=== PATIENT | female | born 1965 | race African-American/Black ===

== ENCOUNTER 2017-10-10 09:43 | Inpatient (IN) | payer OTHER ==
[2017-10-02 13:09] VITALS: BMI 47.5
--- NOTE | 2017-10-10 07:56 | HP ---
Admitting History and Physical - Admission Chief Complaint: left knee osteroarthritis x years History of Present Illness: 52 year old female presents in regard to her left knee. Longstanding history of left knee osteoarthritis. She complains of pain, limited ROM, difficulty ambulating, difficulty with bending, squatting and stairs as well as ADLs. She has failed conservative treatment measures including PO medication, injections, activity modifications and exercise program. At this point, patient would like to proceed with a left total knee arthroplasty. History Source: Patient - Past Medical History Pulmonary: Yes: Asthma ...LMP: 09/11/17 Psych: Yes: Depression Endocrine: Yes: Diabetes Mellitus - Past Surgical History Additional Past Surgical History: See written H&P. - Advance Directives Advance Directives: Yes: Health Care Proxy - Smoking History Smoking history: Current every day smoker Have you smoked in the past 12 months: Yes Aproximately how many cigarettes per day: 10 - Alcohol/Substance Use Hx Alcohol Use: Yes (RARE) Home Medications - Allergies Allergies/Adverse Reactions: Allergies Allergy/AdvReac Type Severity Reaction Status Date / Time Sulfa (Sulfonamide Allergy Mild Hives Verified 10/02/17 13:12 Antibiotics) - Home Medications Home Medications: Ambulatory Orders Cholecalciferol (Vitamin D3) [Vitamin D3] 5,000 unit PO WEEKLY 08/29/16 Metformin HCl 500 mg PO BID 08/29/16 Oxycodone HCl 30 mg PO QID 08/29/16 Albuterol Sulfate Inhaler - [Ventolin Hfa Inhaler -] 1 - 2 inh PO QID PRN Aspirin [Aspirin EC] 81 mg PO DAILY 10/02/17 Atorvastatin Ca [Lipitor] 20 mg PO HS 10/02/17 Proair Respiclick 1 each IH PRN PRN 10/02/17 Quetiapine Fumarate [Seroquel] 100 mg PO HS 10/02/17 Review of Systems - Review of Systems Musculoskeletal: reports: Crepitus (left knee), Decreased ROM (left knee), Joint Pain (left knee), Joint Swelling (left knee) Physical Examination Constitutional: Yes: Well Nourished Eyes: Yes: Conjunctiva Clear HENT: Yes: Atraumatic, Normocephalic Neck: Yes: Supple Cardiovascular: Yes: Regular Rate and Rhythm Respiratory: Yes: Regular Gastrointestinal: Yes: Soft ...Rectal Exam: Yes: Deferred Musculoskeletal: Yes: Joint Stiffness (left knee), Joint Swelling (left knee) Assessment/Plan 52 year old female presents in regard to her left knee. Longstanding history of left knee osteoarthritis. Patient complains of pain, limited ROM, difficulty ambulating, difficulty with bending, squatting and stairs as well as ADLs. Patient has failed conservative treatment measures including PO medication, injections, activity modifications and exercise program. Pros, cons, risks, benefits and alternatives of a left total knee arthroplasty was discussed with he patient. Patient confirma their understanding, patient wishes to proceed with a left total knee arthroplasty.
[~2017-10-10 09:43] MED LIST: CEFAZOLIN 2 GM in DEXTROSE 5%-WATER - 50 ML IVPB ONE; CELECOXIB 200 MG CAPSULE PO ONE; GABAPENTIN 300 MG CAPSULE (FP) PO ONE; PANTOPRAZOLE 40 MG TABLET (FP) PO ONE; ROPIVICAINE 0.2%/MORPH PF/KETOROLAC - 51ML DISP.SYRINGE IA ONE; TRANEXAMIC ACID 1000 MG/10 ML VIAL IVPUSH ONE; oxyCODONE HCL 10 MG SUSTAINED ACTING TABLET PO ONE
[2017-10-10] MEDS ORDERED: oxyCODONE HCL 10 MG SUSTAINED ACTING TABLET ONE (10:30)
[2017-10-10] MEDS ORDERED: GABAPENTIN 300 MG CAPSULE (FP) ONE (10:30)
[2017-10-10] MEDS ORDERED: PANTOPRAZOLE 40 MG TABLET (FP) ONE (10:30)
[2017-10-10] MEDS ORDERED: CELECOXIB 200 MG CAPSULE ONE (10:31)
[2017-10-10] MEDS ORDERED: BUPIVACAINE LIPOSOME/PF (EXPAREL) 266 MG/20 ML VIAL ONE (11:57)
[2017-10-10] MEDS ORDERED: BUPIVACAINE HCL/PF (5 MG/ML) 30 ML VIAL IJ ONE (11:57)
[2017-10-10] MEDS ORDERED: DEXAMETHASONE SOD PHOSPHATE/PF 10 MG/ML SDV ONE (11:57)
[2017-10-10] MEDS ORDERED: MIDAZOLAM HCL 2 MG/2 ML SINGLE DOSE VIAL ONE ×2 (11:57→13:30)
[2017-10-10] MEDS ORDERED: SODIUM CHLORIDE 0.9% P/F 10 ML VIAL IJ ONE ×4 (11:57→13:35)
[2017-10-10] MEDS ORDERED: ROPIVICAINE 0.2%/MORPH PF/KETOROLAC - 51ML DISP.SYRINGE IA ONE (12:27)
[2017-10-10] MEDS ORDERED: VANCOMYCIN 1,000 MG VIAL (RESTRICTED TO ID ONLY) ONE ×2 (12:27→13:26)
[2017-10-10] MEDS ORDERED: TRANEXAMIC ACID 1000 MG/10 ML VIAL ONE ×2 (12:59→13:29)
[2017-10-10] MEDS ORDERED: ceFAZolin SODIUM 1 GM VIAL ONE ×2 (12:59→13:00)
[2017-10-10] MEDS ORDERED: PROPOFOL 20 ML ONE ×2 (13:00→14:59)
[2017-10-10] MEDS ORDERED: DEXAMETHASONE SOD PHOSPHATE 4 MG/1 ML VIAL ONE (13:33)
[2017-10-10] MEDS ORDERED: ONDANSETRON 4 MG/2 ML VIAL ONE (13:33)
[2017-10-10] MEDS ORDERED: PHENYLEPHRINE HCL 10 MG/1 ML SINGLE DOSE VIAL ONE (13:35)
[2017-10-10] MEDS ORDERED: traMADol HCL 50 MG TABLET ONE (16:19)
[2017-10-10] MEDS ORDERED: ACETAMINOPHEN INJECTION 100 ML IVPB ONE (16:19)
[2017-10-10] MEDS ORDERED: KETOROLAC TROMETHAMINE 30 MG/1 ML VIAL ONE (16:19)
[2017-10-10] MEDS ORDERED: ALBUTEROL SO4 18 GM HFA INHALER IH PRN ×3 (16:20→16:53)
[2017-10-10] MEDS ORDERED: MAG HYDROX/AL HYDROX/SIMETH 30 ML UNIT-DOSE CUP PO PRN (16:25)
[2017-10-10] MEDS ORDERED: MAGNESIUM HYDROX 2400MG/30ML ORAL SUSPENSION 30 ML CUP PO PRN (16:25)
[2017-10-10] MEDS ORDERED: ONDANSETRON 4 MG/2 ML VIAL IVPUSH PRN ×2 (16:25→16:39)
--- NOTE | 2017-10-10 16:25 | OP ---
Operative Note - Note: Operative Date: 10/10/17 Pre-Operative Diagnosis: Left knee OA Operation: Left TKA Findings: see dictation Post-Operative Diagnosis: Same as Pre-op Surgeon: Harrison Faulkner Biometrics Analyst: Waleska Geronimo Anesthesiologist/BUSINESS PROCESS MODELER: Joaquin Ashford Anesthesia: Spinal Estimated Blood Loss (mls): 150
[2017-10-10] MEDS ORDERED: LACTATED RINGERS SOLUTION 1,000 ML IV SCH (16:30)
[2017-10-10] MEDS ORDERED: PROMETHAZINE HCL 25 MG/1 ML VIAL IVPB PRN (16:39)
[2017-10-10] MEDS: ACETAMINOPHEN 1000 MG/100 ML VIAL (NON FORMULARY) IVPB ONE ×2 (16:45→17:58)
[2017-10-10] MEDS ORDERED: oxyCODONE HCL 5 MG TABLET PO PRN (16:47)
[2017-10-10] MEDS ORDERED: VANCOMYCIN 1,750 MG in DEXTROSE 5%-WATER - 250 ML IVPB ONE (17:00)
[2017-10-10] MEDS ORDERED: VANCOMYCIN 1,750 MG in DEXTROSE 5%-WATER - 500 ML IVPB ONE (17:00)
[2017-10-10] MEDS: KETOROLAC TROMETHAMINE 30 MG/1 ML VIAL IVPUSH SCH ×2 (17:57→23:00)
[2017-10-10] MEDS: traMADol HCL 50 MG TABLET PO SCH ×2 (17:57→22:34)
[2017-10-10] MEDS: ACETAMINOPHEN 325 MG TABLET (FP) PO SCH ×2 (17:58→22:36)
[2017-10-10] MEDS: CEFAZOLIN 2 GM/D5W 2 GM/50 ML ML IVPB SCH (18:14)
[2017-10-10] MEDS: oxyCODONE HCL 5 MG TABLET PO PRN (19:00)
[2017-10-10] MEDS: APIXABAN 2.5 MG TABLET PO SCH (22:31)
[2017-10-10] MEDS: GABAPENTIN 300 MG CAPSULE (FP) PO SCH (22:32)
[2017-10-10] MEDS: CELECOXIB 200 MG CAPSULE PO SCH (22:32)
[2017-10-10] MEDS: oxyCODONE HCL 10 MG SUSTAINED ACTING TABLET PO SCH (22:32)
[2017-10-10] MEDS: QUEtiapine FUMARATE 100 MG TABLET (FP) PO SCH (22:33)
[2017-10-10] MEDS: SENNOSIDES/DOCUSATE COMBO (SENNA PLUS) TABLET (UD) PO SCH (22:37)
[2017-10-10] MEDS: ASCORBIC ACID 500 MG TABLET (FP) PO SCH (22:37)
[2017-10-10] MEDS: ATORVASTATIN CA 20 MG TABLET (FP) PO SCH (22:37)
[2017-10-11] MEDS ORDERED: DEXAMETHASONE SOD PHOSPHATE 10 MG/1 ML VIAL IVPB ONE (01:00)
[2017-10-11] MEDS ORDERED: VANCOMYCIN 1 GRAM (PRE-DOCKED) 1,000 MG/250 ML BAG IVPB ONE (01:00)
[2017-10-11] MEDS: CEFAZOLIN 2 GM/D5W 2 GM/50 ML ML IVPB SCH ×2 (01:20→10:39)
[2017-10-11] MEDS: oxyCODONE HCL 5 MG TABLET PO PRN ×3 (02:25→23:58)
[2017-10-11] MEDS: metFORMIN HCL 500 MG TABLET (FP) PO SCH ×2 (06:28→17:24)
[2017-10-11] MEDS: ACETAMINOPHEN 325 MG TABLET (FP) PO SCH ×5 (06:30→23:50)
[2017-10-11] MEDS: KETOROLAC TROMETHAMINE 30 MG/1 ML VIAL IVPUSH SCH ×2 (06:31→10:42)
[2017-10-11 08:43] LABS: HEMATOCRIT 27.9 % (32.4-45.2); HEMOGLOBIN 8.2 GM/dl (10.7-15.3); MCH 22.3 pg (25.7-33.7); MCHC 29.6 g/dl (32.0-36.0); MEAN CELL VOLUME 75.3 fl (80-96); MEAN PLT VOLUME 8.5 fl (7.5-11.1); PLATELET COUNT 198 K/MM3 (134-434); RDW 15.6 % (11.6-15.6); WHITE BLOOD COUNT 13.5 K/mm3 (4.0-10.8)
[2017-10-11 08:50] LABS: ANION GAP 7 (8-16); BLOOD UREA NITROGEN 18 mg/dl (7-18); CALCIUM 8.5 mg/dl (8.4-10.2); CHLORIDE 102 mmol/L (98-107); CO2 25 mmol/L (22-28); CREATININE 0.7 mg/dl (0.6-1.3); GLUCOSE,RANDOM 221 mg/dl (74-106); POTASSIUM 3.9 mmol/L (3.5-5.1); SODIUM 134 mmol/L (136-145)
[2017-10-11] MEDS ORDERED: ONDANSETRON 4 MG/2 ML VIAL IVPUSH PRN (08:52)
[2017-10-11 09:59] LABS: ADD RBC MORPHOLOGY YES
--- NOTE | 2017-10-11 10:10 | PN ---
Progress Note (short form) - Note Progress Note: S: Pt. in a chair, comfortable with no complaints. O: VAS 6/10 A/p: POD #1 s/p left total knee 1. Pain tolerable at 6/10. encouraged pain meds as needed 2. no apparent anesthesia complications
[2017-10-11] MEDS: MULTIVITAMINS (DAILY MVI) TABLET (FP) PO SCH (10:40)
[2017-10-11] MEDS: CELECOXIB 200 MG CAPSULE PO SCH ×2 (10:40→21:09)
[2017-10-11] MEDS: PANTOPRAZOLE 40 MG TABLET (FP) PO SCH (10:40)
[2017-10-11] MEDS: ASCORBIC ACID 500 MG TABLET (FP) PO SCH ×2 (10:40→21:10)
[2017-10-11] MEDS: SENNOSIDES/DOCUSATE COMBO (SENNA PLUS) TABLET (UD) PO SCH ×2 (10:40→21:09)
[2017-10-11] MEDS: APIXABAN 2.5 MG TABLET PO SCH ×2 (10:40→21:08)
[2017-10-11] MEDS: GABAPENTIN 300 MG CAPSULE (FP) PO SCH ×2 (10:41→21:08)
[2017-10-11] MEDS: oxyCODONE HCL 10 MG SUSTAINED ACTING TABLET PO SCH ×2 (10:41→21:08)
[2017-10-11] MEDS: traMADol HCL 50 MG TABLET PO SCH ×3 (10:42→23:08)
[2017-10-11] MEDS: oxyCODONE HCL 5 MG TABLET PO SCH ×3 (10:51→17:25)
[2017-10-11 12:29] LABS: ANISOCYTOSIS 1+
[2017-10-11] MEDS: LACTATED RINGERS SOLUTION 1,000 ML IV SCH ×2 (14:07→17:24)
[2017-10-11] MEDS ORDERED: oxyCODONE HCL 5 MG TABLET PO PRN (18:43)
--- NOTE | 2017-10-11 18:47 | PN ---
Progress Note (short form) - Note Progress Note: Pt seen and examined. Doing well. AVSS Selected Entries 10/11/17 14:35 Temperature 98.2 F Pulse Rate 86 Respiratory 18 Rate Blood Pressure 105/75 Laboratory Tests 10/11/17 10/11/17 10/11/17 06:38 08:00 08:00 WBC 13.5 H Hgb 8.2 L Hct 27.9 L Plt Count 198 Sodium 134 L Potassium 3.9 Chloride 102 Carbon Dioxide 25 Anion Gap 7 L BUN 18 Creatinine 0.7 POC Glucometer 217 Random Glucose 221 H Calcium 8.5 Gen: NAD LLE: c/d/i, NVID A/P 52yo female POD#1 s/p L TKA 1. PT/OOB 2. D/C in AM after PT; f/u in office in 10-14 days
[2017-10-11] MEDS: ATORVASTATIN CA 20 MG TABLET (FP) PO SCH (21:08)
[2017-10-11] MEDS: QUEtiapine FUMARATE 100 MG TABLET (FP) PO SCH (21:09)
[2017-10-12] MEDS: traMADol HCL 50 MG TABLET PO SCH ×3 (05:48→10:10)
[2017-10-12] MEDS: metFORMIN HCL 500 MG TABLET (FP) PO SCH (06:11)
[2017-10-12] MEDS: oxyCODONE HCL 5 MG TABLET PO PRN (06:12)
[2017-10-12] MEDS: ACETAMINOPHEN 325 MG TABLET (FP) PO SCH (06:12)
[2017-10-12 07:09] VITALS: BP 109/62; PULSE 87; TEMP 98.5
[2017-10-12 07:44] LABS: HEMATOCRIT 23.2 % (32.4-45.2); HEMOGLOBIN 7.1 GM/dl (10.7-15.3); MCH 22.9 pg (25.7-33.7); MCHC 30.6 g/dl (32.0-36.0); MEAN CELL VOLUME 74.8 fl (80-96); MEAN PLT VOLUME 7.2 fl (7.5-11.1); PLATELET COUNT 171 K/MM3 (134-434); RDW 15.5 % (11.6-15.6); WHITE BLOOD COUNT 11.3 K/mm3 (4.0-10.8)
[2017-10-12 07:50] LABS: ADD RBC MORPHOLOGY YES
[2017-10-12 08:29] LABS: ANION GAP 4 (8-16); BLOOD UREA NITROGEN 22 mg/dl (7-18); CALCIUM 8.9 mg/dl (8.4-10.2); CHLORIDE 106 mmol/L (98-107); CO2 25 mmol/L (22-28); CREATININE 0.7 mg/dl (0.6-1.3); GLUCOSE,RANDOM 161 mg/dl (74-106); POTASSIUM 3.8 mmol/L (3.5-5.1); SODIUM 135 mmol/L (136-145)
[2017-10-12] MEDS: SENNOSIDES/DOCUSATE COMBO (SENNA PLUS) TABLET (UD) PO SCH (09:46)
[2017-10-12] MEDS: oxyCODONE HCL 10 MG SUSTAINED ACTING TABLET PO SCH (09:47)
[2017-10-12] MEDS: PANTOPRAZOLE 40 MG TABLET (FP) PO SCH (09:47)
[2017-10-12] MEDS: APIXABAN 2.5 MG TABLET PO SCH (09:47)
[2017-10-12] MEDS: CELECOXIB 200 MG CAPSULE PO SCH (09:47)
[2017-10-12] MEDS: MULTIVITAMINS (DAILY MVI) TABLET (FP) PO SCH (09:47)
[2017-10-12] MEDS: GABAPENTIN 300 MG CAPSULE (FP) PO SCH (09:47)
[2017-10-12] MEDS: ASCORBIC ACID 500 MG TABLET (FP) PO SCH (09:47)
[2017-10-12 10:34] LABS: TARGET CELLS FEW
--- NOTE | 2017-10-15 13:23 | PATH ---
Surgical Pathology Report Patient Name: MARLYN CORDOVA Med. Rec. #: [id number] /Age/Gender: 1965 (Age: 52) / F Account: [id number] Location: [facility] Taken: 10/10/2017 Received: 10/10/2017 Reported: 10/15/2017 Physicians: Harrison Faulkner M.D. Specimen(s) Received BONE LEFT KNEE Clinical History Left knee osteoarthritis Final Diagnosis KNEE, BONE, LEFT, TOTAL KNEE REPLACEMENT: DEGENERATIVE JOINT DISEASE. Electronically Signed Светлана Khan M.D. Gross Description Received in formalin labeled "bone left knee," is a 12.0 x 10.0 x 1.8 cm aggregate of multiple irregular portions of bone and soft tissue, consistent with knee bones. There is a 2 cm in greatest dimension area of eburnation identified. The remaining articular surfaces are villeda-yellow and focally granular. The underlying trabecular bone is yellow and hard. Treatment Technician sections are submitted in one cassette, following decalcification. 10/11/2017 [facility]10/11/2017
== END 2017-10-12 11:47 | disposition home health service (06) | DRG 302 ==
LOC: FM/S 09:43
PROVIDERS: ADMIT Student in an Organized Health Care Education/Training Program; ATTEND Student in an Organized Health Care Education/Training Program
PROC: 0SRD0JZ Replacement of Left Knee Joint with Synthetic Substitute, Open Approach (ICD-10-PCS; principal; 2017-10-10 13:45)
DX: M17.12 Unilateral primary osteoarthritis, left knee (principal); F17.210 Nicotine dependence, cigarettes, uncomplicated; J45.909 Unspecified asthma, uncomplicated; F32.9 Major depressive disorder, single episode, unspecified; E11.9 Type 2 diabetes mellitus without complications; Z79.84 Long term (current) use of oral hypoglycemic drugs
CPT/HCPCS: 36415; 73560-TC-LT; 80048; 82962; 84703; 85027; 94760; 97116-GP; 97162-GP; J1100